=== PATIENT | female | born 1980 | race Caucasian/White ===

== ENCOUNTER 2018-09-26 20:06 | Emergency (ER) | payer MEDICAID ==
[~2018-09-26] VITALS: Ht 165.1 cm; Wt 56.0 kg
[2018-09-26] MEDS ORDERED: ONDANSETRON HCL 4MG/2ML INJ IV STA (20:44)
[2018-09-26] MEDS ORDERED: KETOROLAC 30MG/ML VIAL IV STA (20:44)
[2018-09-26] MEDS ORDERED: MORPHINE SULFATE 4 MG/ML CPJ (NOT FOR IM USE) IV STA (20:44)
[2018-09-26] MEDS ORDERED: SODIUM CHLORIDE 0.9% 1,000 ML IV ONE (20:44)
[2018-09-26 21:21] LABS: BASOPHILS % 0.5 % (0.0-2.0); EOSINOPHILS % 1.6 % (0.0-5.0); HEMATOCRIT. 37.5 % (36.0-48.0); HEMOGLOBIN. 12.4 g/dL (12.0-16.0); LYMPHOCYTES % 26.6 % (20.0-50.0); MEAN CORPUSCULAR HEMOGLOBIN 32.2 pg (28.0-32.0); MEAN CORPUSCULAR VOLUME 97.3 fL (81.0-99.0); MEAN PLATELET VOLUME 7.4 fl (7.4-10.4); NEUTROPHILS % 62.3 % (40.0-76.0); PLATELET 289 x1000/uL (130-400); RED BLOOD CELL COUNT 3.86 mill/uL (4.2-5.4); RED CELL DISTRIBUTION WIDTH 13.5 % (11.6-14.6)
[2018-09-26 21:25] LABS: CHLORIDE 109 mEq/L (98-107)
[2018-09-26 21:27] LABS: INR 0.9
[2018-09-26 21:31] LABS: ETHANOL BLOOD < 10 mg/dL
[2018-09-26 21:33] LABS: HCG SCREEN NEGATIVE
[2018-09-26 21:38] LABS: CLARITY URINE CLEAR (CLEAR); COLOR URINE YELLOW (YELLOW); KETONES URINE TRACE (NEGATIVE); LEUKOCYTE ESTERASE URINE 1+ (NEGATIVE); NITRITE URINE NEGATIVE (NEGATIVE); OCCULT BLOOD URINE 3+ (NEGATIVE); PROTEIN URINE 1+ (NEGATIVE)
[2018-09-26 21:54] LABS: OPIATES URINE SCREEN NEGATIVE (NEGATIVE)
[2018-09-26 21:55] LABS: *AMPHETAMINES SCREEN URINE NEGATIVE (NEGATIVE); *BARBITURATES SCREEN URINE NEGATIVE (NEGATIVE); *BENZODIAZEPINES SCREEN URINE NEGATIVE (NEGATIVE); *COCAINE SCREEN URINE NEGATIVE (NEGATIVE); CANNABINOID URINE SCREEN NEGATIVE (NEGATIVE); PHENCYCLIDINE URINE SCREEN NEGATIVE (NEGATIVE)
[2018-09-26 21:56] LABS: METHADONE URINE SCREEN NEGATIVE (NEGATIVE)
[2018-09-27] MEDS ORDERED: ACETAMINOPHEN 325MG TABLET PO ONE (15:30)
[2018-09-28] MEDS ORDERED: THYROID 60MG TABLET PO SCH (07:00)
[2018-09-28] MEDS: METFORMIN HCL 500MG TABLET PO SCH ×2 (09:00→17:00)
[2018-09-28] MEDS ORDERED: LORATADINE 10MG TABLET PO SCH (09:00)
[2018-09-29] MEDS ORDERED: ACETAMINOPHEN 500MG TABLET PO ONE (12:45)
[2018-09-29] MEDS ORDERED: IBUPROFEN 600MG TABLET PO ONE (12:45)
[2018-09-29] MEDS: METFORMIN HCL 500MG TABLET PO SCH (12:54)
[2018-09-29 16:52] VITALS: BP 110/68
== END 2018-09-29 16:56 | disposition home or self-care (01) ==
LOC: ER 20:06
DX: N39.0 Urinary tract infection, site not specified (principal); E86.0 Dehydration; R25.2 Cramp and spasm; F17.210 Nicotine dependence, cigarettes, uncomplicated; E88.40 Mitochondrial metabolism disorder, unspecified; Z59.0 Homelessness; Z75.1 Person awaiting admission to adequate facility elsewhere
CPT/HCPCS: 36415; 80053; 80305; 80320; 81003; 81025; 83690; 84703; 85025; 85610; 96361; 96374; 96375; 96376; 99283; J1885; J2270; J2405; J7030; Z7610; G0480

== ENCOUNTER 2024-08-07 20:29 | Emergency (ER) | payer MEDICAID ==
[~2024-08-07] VITALS: Ht 160 cm; Wt 66.0 kg
[2024-08-07 20:46] VITALS: O2SAT 99
[2024-08-07 22:25] VITALS: TEMP 36.7
[2024-08-07 22:30] VITALS: TEMP 98
[2024-08-07] MEDS: LIDOCAINE 5% PATCH TOP SCH (22:30)
[2024-08-07] MEDS: ACETAMINOPHEN 500MG TABLET PO ONE (22:30)
[2024-08-08 01:20] VITALS: BP 108/73; PULSE 70; RESP 16; O2SAT 99
[2024-08-08] MEDS: TETRACAINE 0.5% OPHTH DROPS 4ML LEFTEYE ONE (01:49)
[2024-08-08] MEDS ORDERED: NAPR-1176 MT (02:03)
[2024-08-08] MEDS ORDERED: CYCL5TAB3 MT (02:44)
[2024-08-08] MEDS ORDERED: GUAI600T26 MT (04:26)
== END 2024-08-08 03:04 | disposition home or self-care (01) ==
LOC: ER 20:29
DX: R51.9 Headache, unspecified (principal); M54.2 Cervicalgia; H53.8 Other visual disturbances; Z79.1 Long term (current) use of non-steroidal anti-inflammatories (NSAID); Z59.00 Homelessness unspecified; Z79.899 Other long term (current) drug therapy
CPT/HCPCS: 70450; 72125; 99284; Z7610

== ENCOUNTER 2024-08-08 03:21 | Emergency (ER) | payer MEDICAID ==
[~2024-08-08] VITALS: Ht 162.6 cm; Wt 66.0 kg
[~2024-08-08 03:21] MED LIST: CYCL5TAB3 MT; NAPR-1176 MT
[2024-08-08 03:51] VITALS: O2SAT 99
[2024-08-08 04:04] VITALS: BP 115/72; PULSE 85; RESP 18; TEMP 36.7; O2SAT 98
[2024-08-08] MEDS ORDERED: GUAI600T26 MT (04:26)
== END 2024-08-08 04:46 | disposition home or self-care (01) ==
LOC: ER 03:21
DX: J06.9 Acute upper respiratory infection, unspecified (principal); Z79.899 Other long term (current) drug therapy
CPT/HCPCS: 99282